=== PATIENT | female | born 1960 | race American Indian/Alaskan Native ===

== ENCOUNTER 2020-10-13 20:36 | Emergency (ER) | payer SELFPAY ==
[2020-10-13] MEDS ORDERED: ALUM-MAG HYDROXIDE-SIMETHICONE 200-200-20MG/5ML ORAL LIQD 30 ML PO ONE (23:28)
[2020-10-13] MEDS ORDERED: methylPREDNISolone Sod Succinate 125 MG/2 ML INJ IV ONE (23:28)
[2020-10-13] MEDS ORDERED: FAMOTIDINE 20 MG TAB PO ONE (23:28)
[2020-10-13] MEDS ORDERED: LIDOCAINE VISCOUS 2% 15 ML ORAL LIQD PO ONE (23:28)
--- NOTE | 2020-10-13 23:57 | XRay Report ---
CHEST 1 VIEW INDICATION: chest tightness. COMPARISON: None FINDINGS: SUPPORT DEVICES: None. HEART: Within normal limits. LUNGS/PLEURA: No acute air space or interstitial disease. ADDITIONAL FINDINGS: None. IMPRESSION: 1. No acute findings. Signer Name: Pradip Huber MD Signed: 10/13/2020 11:52 PM Workstation Name: [id number]
[2020-10-14 00:42] LABS: Basophils % (Auto) 0.2 % (0.0-1.8); Eosinophils # (Auto) 0.1 K/mm3 (0.0-0.4); Eosinophils % (Auto) 1.5 % (0.0-4.3); Hematocrit 45.7 % (30.3-42.9); Hemoglobin 15.3 gm/dl (10.1-14.3); Lymphocytes # (Auto) 3.1 K/mm3 (1.2-5.4); Lymphocytes % (Auto) 39.6 % (13.4-35.0); Mean Corpuscular HGB Conc 34 % (30-34); Mean Corpuscular Volume 95 fl (79-97); Monocytes # (Auto) 0.6 K/mm3 (0.0-0.8); Monocytes % (Auto) 7.9 % (0.0-7.3); Platelet Count 277 K/mm3 (140-440); Red Cell Distribution Width 14.5 % (13.2-15.2)
[2020-10-14 00:47] LABS: Alanine Aminotransferase 16 units/L (7-56); Albumin 4.6 g/dL (3.9-5); BUN/Creatinine Ratio 7; Blood Urea Nitrogen 5 mg/dL (7-17); Calcium 9.8 mg/dL (8.4-10.2); Hemolysis Index 7
--- NOTE | 2020-10-14 02:15 | Emergency Department Report ---
ED Abdominal Pain HPI - General Chief Complaint: Abdominal Pain Stated Complaint: ACID REFLUX/CHEST TIGHTNESS Source: patient Mode of arrival: Ambulatory Limitations: No Limitations - History of Present Illness Initial Comments: Patient is a 60-year-old -[place] female with a history of anxiety and depression, hypothyroidism and GERD who presents to the ED with acute onset persistent frontal sinus pressure, headache, nasal congestion, intermittent nausea and vomiting and epigastric burning sensation for the last 24 hours, worse in the last 12 hours. Patient states that she has not been able to sleep or eat because of worsening epigastric discomfort and nausea. Patient states that the nasal congestion and drainage has worsened despite taking regular medications for allergies. Patient states that her symptoms got worse in the last 8 hours such that she started having panic attack characterized by shortness of breath and chest tightness. Patient states that she also ran out of her Synthroid for the last 1 year and has not taken the medication because she lost her medical insurance. Patient denies chest pain, shortness of breath, dizziness, syncope, diarrhea, dysuria, sore throat, neck pain, headache, change in vision or palpitations and back pain. MD Complaint: abdominal pain, other (Nausea and vomiting; medication refill for hypothyroidism) -: Sudden, hour(s) (24) Location: epigastric Radiation: chest Migration to: no migration Severity: moderate Severity scale (0 -10): 4 Quality: dull, burning Consistency: intermittent Improves With: nothing Worsens With: eating, vomiting Context: other (GERD complications) Associated Symptoms: denies other symptoms, nausea, vomiting, anorexia. denies: diarrhea, fever, chills, constipation, dysuria, hematemesis, hematochezia, melena, hematuria - Related Data Previous Rx's Medication Instructions Recorded Last Taken Type Cetirizine HCl [Zyrtec 10mg tab] 10 mg PO DAILY #30 tablet 10/14/20 Unknown Rx Famotidine [Pepcid] 20 mg PO BID #60 tablet 10/14/20 Unknown Rx Fluticasone [Flonase] 1 spray NS QDAY #1 bottle 10/14/20 Unknown Rx Levothyroxine [Synthroid] 100 mcg PO QAM #30 tablet 10/14/20 Unknown Rx Omeprazole 40 mg PO DAILY #30 capsule. 10/14/20 Unknown Rx Ondansetron [Zofran Odt] 4 mg PO Q6HR PRN #15 tab.rapdis 10/14/20 Unknown Rx hydrOXYzine PAMOATE [Vistaril] 50 mg PO Q8H PRN #30 capsule 10/14/20 Unknown Rx Allergies Allergy/AdvReac Type Severity Reaction Status Date / Time amoxicillin [From Augmentin] Allergy Vomiting Verified 10/13/20 23:52 clavulanic acid Allergy Vomiting Verified 10/13/20 23:52 [From Augmentin] erythromycin base Allergy Hives Verified 10/13/20 23:52 ED Review of Systems ROS: Stated complaint: ACID REFLUX/CHEST TIGHTNESS Other details as noted in HPI Constitutional: denies: chills, fever Eyes: denies: eye pain, eye discharge, vision change ENT: congestion, other (Frontal and maxillary sinus pressure and congestion). denies: ear pain, throat pain Respiratory: cough, shortness of breath. denies: wheezing Cardiovascular: denies: chest pain, palpitations Endocrine: no symptoms reported Gastrointestinal: abdominal pain (Burning epigastric pain), nausea, vomiting. denies: diarrhea Genitourinary: denies: urgency, dysuria, discharge Musculoskeletal: back pain (Low back pain, chronic). denies: joint swelling, arthralgia Skin: denies: rash, lesions Neurological: headache. denies: weakness, paresthesias Psychiatric: anxiety, depression. denies: auditory hallucinations Hematological/Lymphatic: denies: easy bleeding, easy bruising ED Past Medical Hx - Past Medical History Previous Medical History?: Yes Hx GERD: Yes Additional medical history: Chronic hypothyroidism - Surgical History Additional Surgical History: THYROIDECTOMY - Social History Smoking Status: Current Every Day Smoker Substance Use Type: None - Medications Home Medications: Home Medications Medication Instructions Recorded Confirmed Last Taken Type Cetirizine HCl [Zyrtec 10mg tab] 10 mg PO DAILY #30 tablet 10/14/20 Unknown Rx Famotidine [Pepcid] 20 mg PO BID #60 tablet 10/14/20 Unknown Rx Fluticasone [Flonase] 1 spray NS QDAY #1 bottle 10/14/20 Unknown Rx Levothyroxine [Synthroid] 100 mcg PO QAM #30 tablet 10/14/20 Unknown Rx Omeprazole 40 mg PO DAILY #30 10/14/20 Unknown Rx Ondansetron [Zofran Odt] 4 mg PO Q6HR PRN #15 tab.rapdis 10/14/20 Unknown Rx hydrOXYzine PAMOATE [Vistaril] 50 mg PO Q8H PRN #30 capsule 10/14/20 Unknown Rx ED Physical Exam - General Limitations: No Limitations General appearance: alert, in no apparent distress - Head Head exam: Present: atraumatic, normocephalic, normal inspection - Eye Eye exam: Present: normal appearance, PERRL, EOMI Pupils: Present: normal accommodation - ENT ENT exam: Present: normal orophraynx, mucous membranes moist, TM's normal bilaterally, normal external ear exam, other (Grossly congested nasal passages; palpable frontal and maxillary sinus tenderness) - Neck Neck exam: Present: normal inspection, full ROM. Absent: tenderness - Respiratory Respiratory exam: Present: normal lung sounds bilaterally. Absent: respiratory distress, wheezes, rales, stridor, chest wall tenderness, accessory muscle use, decreased breath sounds - Cardiovascular Cardiovascular Exam: Present: normal rhythm, bradycardia, normal heart sounds. Absent: systolic murmur, diastolic murmur, rubs, gallop - GI/Abdominal GI/Abdominal exam: Present: soft, normal bowel sounds. Absent: tenderness, guarding, rebound, hyperactive bowel sounds, hypoactive bowel sounds, organomegaly - Extremities Exam Extremities exam: Present: normal inspection, full ROM, normal capillary refill - Back Exam Back exam: Present: normal inspection, full ROM. Absent: tenderness, CVA t enderness (R), CVA tenderness (L), muscle spasm, paraspinal tenderness, vertebral tenderness - Neurological Exam Neurological exam: Present: alert, oriented X3, CN II-XII intact, normal gait, reflexes normal - Psychiatric Psychiatric exam: Present: normal affect, depressed, anxious. Absent: homicidal ideation, suicidal ideation - Skin Skin exam: Present: warm, dry, intact, normal color. Absent: rash ED Course Vital Signs 10/13/20 20:51 Temperature 98.6 F Pulse Rate 54 L Respiratory 18 Rate Blood Pressure 206/85 O2 Sat by Pulse 97 Oximetry ED Medical Decision Making - Lab Data Result diagrams: 10/13/20 23:44 10/13/20 23:44 - EKG Data EKG shows normal: sinus rhythm Rate: normal - EKG Data Interpretation: normal EKG 10/14/20 02:26 EKG shows normal sinus rhythm with a ventricular rate of [address] or T wave abnormalities - Radiology Data Radiology results: report reviewed, image reviewed [facility] [address] [place] [address] XRay Report Signed Patient: JOEL SCHWAB MR#: [id number] 25 : 1960 Acct:[id number] Age/Sex: 60 / F ADM Date: 10/13/20 Loc: ED Attending Dr: Ordering Physician: PUNEET HARVEY Date of Service: 10/13/20 Procedure(s): XR chest 1V ap Accession Number(s): [id number] cc: PUNEET HARVEY Fluoro Time In Minutes: CHEST 1 VIEW INDICATION: chest tightness. COMPARISON: None FINDINGS: SUPPORT DEVICES: None. HEART: Within normal limits. LUNGS/PLEURA: No acute air space or interstitial disease. ADDITIONAL FINDINGS: None. IMPRESSION: 1. No acute findings. Signer Name: Pradip Huber MD Signed: 10/13/2020 11:52 PM Workstation Name: [id number] Transcribed By: ARECNIO Dictated By: Pradip Huber MD Electronically Authenticated By: Pradip Huber MD Signed Date/Time: 10/13/202351 DD/ 51 TD/TT: Print Cancel - Medical Decision Making This is a 60-year-old -[place]ib[place] female with a history of anxiety and depression, hypothyroidism and GERD who presents to the ED with acute onset persistent frontal sinus pressure, headache, nasal congestion, intermittent nausea and vomiting and epigastric burning sensation for the last 24 hours, worse in the last 12 hours. Patient states that she has not been able to sleep or eat because of worsening epigastric discomfort and nausea. Patient states that the nasal congestion and drainage has worsened despite taking regular medications for allergies. Patient states that her symptoms got worse in the last 8 hours such that she started having panic attack characterized by shortness of breath and chest tightness. Patient states that she also ran out of her Synthroid for the last 1 year and has not taken the medication because she lost her medical insurance. In the ED, patient is alert and oriented x3 and is not in any distress. Patient however appears anxious during the physical exam. Chest x-ray shows no acute cardiopulmonary abnormalities or pneumonitis. EKG shows normal sinus rhythm with a ventricular rate of [address] or T wave abnormalities lab test results were reviewed and are all nonactionable except for TSH of 34.07, consistent with the patient's untreated chronic hypothyroidism. Patient was treated in the ED for nausea and vomiting and also treated with antacids for GERD. On reevaluation, patient's nausea and vomiting resolved in the ED. Patient was therefore discharged home on medications and advised to follow-up with her primary care physician in 5 to 7 days for reevaluation or return to the ED immediately if symptoms get worse. - Differential Diagnosis GERD; sinusitis; gastroenteritis; pneumonia; ACS; URI; dehydration Critical care attestation.: If time is entered above; I have spent that time in minutes in the direct care of this critically ill patient, excluding procedure time. ED Disposition Clinical Impression: Nausea and vomiting in adult patient, Anxiety as acute reaction to exceptional stress, Chronic allergic rhinitis due to pollen GERD (gastroesophageal reflux disease) Qualifiers: Esophagitis presence: esophagitis presence not specified Qualified Code(s): K21.9 - Gastro-esophageal reflux disease without esophagitis Hypothyroidism Qualifiers: Hypothyroidism type: unspecified Qualified Code(s): E03.9 - Hypothyroidism, unspecified Disposition: DC-01 TO HOME OR SELFCARE Is pt being admited?: No Does the pt Need Aspirin: No Condition: Stable Instructions: Abdominal Pain (ED), Nausea and Vomiting, Adult, [id number], Heartburn, [id number], Gastroesophageal Reflux Disease, Adult, [id number] Additional Instructions: All lab test results were reviewed and are all nonactionable. EKG shows normal sinus rhythm with ventricular rate of [address] or T wave abnormalities. Chest x-ray shows no acute cardiopulmonary abnormalities or pneumonitis. Therefore your symptoms are due to your chronic allergic rhinitis characterized by complications of GERD and anxiety. Therefore take medications with food, d rink plenty fluids and follow-up with your primary care physician in 5 to 7 days for reevaluation. Return to the ED immediately if symptoms get worse. Prescriptions: Fluticasone [Flonase] 1 spray NS QDAY #1 bottle Omeprazole 40 mg PO DAILY #30 capsule. Famotidine [Pepcid] 20 mg PO BID #60 tablet Levothyroxine [Synthroid] 100 mcg PO QAM #30 tablet hydrOXYzine PAMOATE [Vistaril] 50 mg PO Q8H PRN #30 capsule PRN Reason: Anxiety Ondansetron [Zofran Odt] 4 mg PO Q6HR PRN #15 tab.rapdis PRN Reason: Nausea Cetirizine HCl [Zyrtec 10mg tab] 10 mg PO DAILY #30 tablet Referrals: [facility] [Provider Group] - 7-[address] [facility] [place] [Outside] - 3-5 Days Time of Disposition: 02:18 Print Language: [place]
[2020-10-14 02:54] VITALS: BP 148/84
--- NOTE | 2020-10-15 13:43 | Electrocardiograph Report ---
[facility] Test Date: 2020-10-14 Test Time: 01:11:26 Pat Name: JOEL SCHWAB Department: Room: Gender: F [employer] Hand: ALBERTA : 1960 Requested By: JESUS FOX Order Number: [id number] Reading MD: Neeraj Redd Measurements Intervals [place] Rate: 88 P: 70 PA: 208 QRS: 12 QRSD: 96 T: 29 QT: 404 QTc: 490 Interpretive Statements Sinus rhythm Borderline prolonged PA interval No previous ECG available for comparison Electronically Signed On 10-15-2020 13:43:30 EDT by Neeraj Redd
== END 2020-10-14 02:55 | disposition home or self-care (01) ==
LOC: ED 20:36
DX: F41.1 Generalized anxiety disorder (principal); F43.0 Acute stress reaction; J30.1 Allergic rhinitis due to pollen; K21.9 Gastro-esophageal reflux disease without esophagitis; E03.9 Hypothyroidism, unspecified; R11.2 Nausea with vomiting, unspecified; F17.200 Nicotine dependence, unspecified, uncomplicated; F32.9 Major depressive disorder, single episode, unspecified; Z79.899 Other long term (current) drug therapy; Z88.8 Allergy status to other drugs, medicaments and biological substances; Z98.890 Other specified postprocedural states
CPT/HCPCS: 36415; 71045; 80053; 84436; 84443; 84484; 85025; 96374; 99284; J2930; 93005

== ENCOUNTER 2021-11-18 10:22 | Outpatient (CLI) | payer OTHER ==
--- NOTE | 2021-11-18 11:32 | XRay Report ---
CERVICAL SPINE 3 VIEWS INDICATION: BACK PAIN, LEFT SIDE PROBLEMS. COMPARISON: None. IMPRESSION: Normal alignment. 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 The remaining levels are within normal limits. No acute osseous or soft tissue abnormality. LEFT SHOULDER 3 VIEWS INDICATION: BACK PAIN, LEFT SIDE PROBLEMS. COMPARISON: None. IMPRESSION: No acute osseous or soft tissue abnormality. No significant DJD. There is normal alig nment at the glenohumeral joint with no findings to suggest a chronic left rotator cuff tear on x-ray . If further evaluation is needed, MRI left shoulder is recommended. Signer Name: Vicente Gómez Jr, MD Signed: 11/18/2021 11:28 AM Workstation Name: [id number]
== END 2021-11-18 10:23 | disposition home or self-care (01) ==
LOC: XRAY 10:22
PROVIDERS: ATTEND Internal Medicine
DX: M47.812 Spondylosis without myelopathy or radiculopathy, cervical region (principal); M25.512 Pain in left shoulder
CPT/HCPCS: 72040

== ENCOUNTER 2022-01-29 14:27 | Emergency (ER) | payer SELFPAY ==
--- NOTE | 2022-01-29 15:00 | Emergency Department Report ---
Minor Respiratory - HPI Stated Complaint: THYROID, BLOOD PRESSURE, DRAINAGE Time Seen by Provider: 01/29/22 14:58 Duration: 3 Days Pain Location: Chest Severity: mild Minor Respiratory: Yes Rhinorrhea, Yes Sore Throat, Yes Able to Tolerate Fluids, Yes Cough, No Ear Pain, No Sick Contacts, No Hemoptysis, No Chest Pain, No Shortness of Breath, No Fever Other History: 61 yo comes to ER with allegies, runny nose, sore thoat. Cough at night when lays down - because of post nasal drip. No cough during day. No sob. No cp. She is requesting refill of synthroid. Pt homeless and has no pcp ED Review of Systems ROS: Stated complaint: THYROID, BLOOD PRESSURE, DRAINAGE Other details as noted in HPI Comment: All other systems reviewed and negative ED Past Medical Hx - Past Medical History Previous Medical History?: Yes Hx GERD: Yes Additional medical history: Chronic hypothyroidism - Surgical History Past Surgical History?: Yes Additional Surgical History: THYROIDECTOMY - Family History Family history: no significant - Social History Smoking Status: Current Every Day Smoker Substance Use Type: None - Medications Home Medications: Home Medications Medication Instructions Recorded Confirmed Last Taken Type Cetirizine HCl [ZyrTEC] 10 mg PO DAILY #30 capsule 01/29/22 Unknown Rx Fluticasone [Flonase] 1 spray NS QDAY #1 bottle 01/29/22 Unknown Rx Ibuprofen [Motrin] 800 mg PO Q8HR PRN #30 tablet 01/29/22 Unknown Rx Levothyroxine [Synthroid] 100 mcg PO QAM #30 tablet 01/29/22 Unknown Rx Sulfamethoxazole/Trimethoprim 1 each PO BID #10 tablet 01/29/22 Unknown Rx [Bactrim DS TAB] predniSONE [Deltasone] 20 mg PO DAILY #5 tablet 01/29/22 Unknown Rx Minor Respiratory Exam - Exam General: Vital signs noted. No distress. Alert and acting appropriately. HEENT: Yes Pharyngeal Erythema, Yes Moist Mucous Membranes, Yes Frontal Tenderness, Yes Maxillary Tenderness, No Pharyngeal Exudates, No Rhinorrhea, No Conjuctival Injection Ear: Neither TM Bulge, Neither TM Erythema, Neither EAC Pain, Neither EAC Discharge Neck: Yes Supple, No Adenopathy Lungs: Yes Good Air Exchange, No Wheezes, No Ronchi, No Stridor, No Cough, No Labored Respirations, No Retractions, No Use of Accessory Muscles, No Other Abnormal Lung Sounds Heart: Yes Regular, No Murmur Abdomen: Yes Normal Bowel Sounds, No Tenderness, No Peritoneal Signs Skin: No Rash, No Edema Neurologic: Alert and oriented, no deficits. Musculoskeletal: Unremarkable. ED Medical Decision Making - Medical Decision Making Vital Signs 01/29/22 14:56 Temperature 98.7 F Pulse Rate 74 Respiratory 12 Rate Blood Pressure 170/75 [Left] O2 Sat by Pulse 100 Oximetry vss no fever no cp no sob taking po ambulatory nad sinus tenderness and red throat. decadron and motrin in ER for comfort pt being dc home with dc plan of care including diet, meds, activity and follow up. Pt verbalizes understanding of plan of care. - Differential Diagnosis URI- sinusitis/allergic rhinitis Critical care attestation.: If time is entered above; I have spent that time in minutes in the direct care of this critically ill patient, excluding procedure time. ED Disposition Clinical Impression: Homeless, History of hypothyroidism, Non-adherence to medical treatment Sinusitis Qualifiers: Sinusitis location: unspecified location Chronicity: acute Disposition: 01 HOME / SELF CARE / HOMELESS Is pt being admited?: No Does the pt Need Aspirin: No Condition: Stable Instructions: Sinusitis, Adult Additional Instructions: MEDS ORDERED TODAY FOLLOW UP WITH PCP REFERRAL BELOW DIET AND ACTIVITY TOLERATED STAY WELL HYDRATED WITH WATER Prescriptions: Sulfamethoxazole/Trimethoprim [Bactrim DS TAB] 1 each PO BID #10 tablet predniSONE [Deltasone] 20 mg PO DAILY #5 tablet Fluticasone [Flonase] 1 spray NS QDAY #1 bottle Ibuprofen [Motrin] 800 mg PO Q8HR PRN #30 tablet PRN Reason: Pain, Moderate (4-6) Levothyroxine [Synthroid] 100 mcg PO QAM #30 tablet Cetirizine HCl [ZyrTEC] 10 mg PO DAILY #30 capsule Referrals: TACOS GANDARA MD [Staff Physician] - 3-5 Days Time of Disposition: 15:26
[2022-01-29 15:05] VITALS: BP 170/75
[2022-01-29] MEDS ORDERED: dexAMETHasone 4 MG/ML VIAL IV ONE (15:24)
[2022-01-29] MEDS ORDERED: IBUPROFEN 800 MG TAB PO ONE (15:24)
[2022-01-29] MEDS ORDERED: dexAMETHasone 4 MG/ML VIAL IM ONE (15:44)
== END 2022-01-29 16:24 | disposition home or self-care (01) ==
LOC: ED 14:27
DX: J32.9 Chronic sinusitis, unspecified (principal); Z59.00 Homelessness unspecified; E03.9 Hypothyroidism, unspecified; F17.200 Nicotine dependence, unspecified, uncomplicated; K21.9 Gastro-esophageal reflux disease without esophagitis; Z88.0 Allergy status to penicillin; Z88.1 Allergy status to other antibiotic agents; Z91.19 Patient's noncompliance with other medical treatment and regimen; Z79.899 Other long term (current) drug therapy
CPT/HCPCS: 96372; 99282; J1100; 96374

== ENCOUNTER 2022-02-17 22:44 | Emergency (ER) | payer SELFPAY ==
[2022-02-18 04:28] VITALS: BP 147/67
--- NOTE | 2022-02-18 05:20 | Emergency Department Report ---
ED General Adult HPI - General Chief complaint: High BP Stated complaint: BLOOD PRESSURE/EAR PAIN/HEAHACHE Source: patient Mode of arrival: Ambulatory Limitations: No Limitations - History of Present Illness Initial comments: Patient is a 61-year-old -[place] female with a history of anxiety, depression, GERD and hypertension who presents to the ED with complaint of acute onset persistent elevated blood pressure for the last 1 week. Patient states that she also ran out of her medications prior to arrival in the ED. Patient denies chest pain, shortness of breath, dizziness, syncope, abdominal pain, nausea and vomiting, diarrhea, headache, diaphoresis, neck pain, back pain, dysuria, urinary frequency and urgency, fever and chills and cough. MD Complaint: Uncontrolled hypertension; currently medication -: Gradual, days(s) (2) Location: head Radiation: non-radiation Severity scale (0 -10): 3 Quality: dull Consistency: intermittent Improves with: none Worsens with: none Associated Symptoms: denies other symptoms, malaise. denies: confusion, chest pain, cough, diaphoresis, fever/chills, headaches, loss of appetite, nausea/vomiting, rash, seizure, shortness of breath, syncope, weakness Treatments Prior to Arrival: none - Related Data Previous Rx's Medication Instructions Recorded Last Taken Type Cetirizine HCl [ZyrTEC] 10 mg PO DAILY #30 capsule 01/29/22 Unknown Rx Fluticasone [Flonase] 1 spray NS QDAY #1 bottle 01/29/22 Unknown Rx Ibuprofen [Motrin] 800 mg PO Q8HR PRN #30 tablet 01/29/22 Unknown Rx Levothyroxine [Synthroid] 100 mcg PO QAM #30 tablet 01/29/22 Unknown Rx Sulfamethoxazole/Trimethoprim 1 each PO BID #10 tablet 01/29/22 Unknown Rx [Bactrim DS TAB] predniSONE [Deltasone] 20 mg PO DAILY #5 tablet 01/29/22 Unknown Rx Lisinopril/Hydrochlorothiazide 1 each PO DAILY #30 tab 02/18/22 Unknown Rx [Zestoretic 20-12.5 mg] hydrOXYzine PAMOATE [Vistaril] 50 mg PO Q8HR PRN #30 capsule 02/18/22 Unknown Rx Allergies Allergy/AdvReac Type Severity Reaction Status Date / Time amoxicillin [From Augmentin] Allergy Vomiting Verified 04/17/21 23:52 clavulanic acid Allergy Vomiting Verified 10/13/20 23:52 [From Augmentin] erythromycin base Allergy Hives Verified 10/13/20 23:52 ED Review of Systems ROS: Stated complaint: BLOOD PRESSURE/EAR PAIN/HEAHACHE Other details as noted in HPI Constitutional: other (elevated blood pressure). denies: chills, fever Eyes: denies: eye pain, eye discharge, vision change ENT: denies: ear pain, throat pain Respiratory: denies: cough, shortness of breath, wheezing Cardiovascular: denies: chest pain, palpitations Endocrine: no symptoms reported Gastrointestinal: denies: abdominal pain, nausea, vomiting, diarrhea Genitourinary: denies: urgency, dysuria, discharge Musculoskeletal: denies: back pain, joint swelling, arthralgia Skin: denies: rash, lesions Neurological: denies: headache, weakness, paresthesias Psychiatric: denies: anxiety, depression Hematological/Lymphatic: denies: easy bleeding, easy bruising ED Past Medical Hx - Past Medical History Hx Hypertension: Yes Hx GERD: Yes Additional medical history: Chronic hypothyroidism - Surgical History Additional Surgical History: THYROIDECTOMY - Social History Smoking Status: Current Every Day Smoker Substance Use Type: None - Medications Home Medications: Home Medications Medication Instructions Recorded Confirmed Last Taken Type Cetirizine HCl [ZyrTEC] 10 mg PO DAILY #30 capsule 01/29/22 Unknown Rx Fluticasone [Flonase] 1 spray NS QDAY #1 bottle 01/29/22 Unknown Rx Ibuprofen [Motrin] 800 mg PO Q8HR PRN #30 tablet 01/29/22 Unknown Rx Levothyroxine [Synthroid] 100 mcg PO QAM #30 tablet 01/29/22 Unknown Rx Sulfamethoxazole/Trimethoprim 1 each PO BID #10 tablet 01/29/22 Unknown Rx [Bactrim DS TAB] predniSONE [Deltasone] 20 mg PO DAILY #5 tablet 01/29/22 Unknown Rx Lisinopril/Hydrochlorothiazide 1 each PO DAILY #30 tab 02/18/22 Unknown Rx [Zestoretic 20-12.5 mg] hydrOXYzine PAMOATE [Vistaril] 50 mg PO Q8HR PRN #30 capsule 02/18/22 Unknown Rx ED Physical Exam - General Limitations: No Limitations General appearance: alert, in no apparent distress - Head Head exam: Present: atraumatic, normocephalic, normal inspection - Eye Eye exam: Present: normal appearance, PERRL, EOMI Pupils: Present: normal accommodation - ENT ENT exam: Present: normal exam, normal orophraynx, mucous membranes moist, TM's normal bilaterally, normal external ear exam - Neck Neck exam: Present: normal inspection, full ROM. Absent: tenderness - Respiratory Respiratory exam: Present: normal lung sounds bilaterally. Absent: respiratory distress, wheezes, rales, rhonchi, stridor, chest wall tenderness, accessory muscle use, decreased breath sounds, prolonged expiratory - Cardiovascular Cardiovascular Exam: Present: normal rhythm, tachycardia, normal heart sounds. Absent: systolic murmur, diastolic murmur, rubs, gallop - GI/Abdominal GI/Abdominal exam: Present: soft, normal bowel sounds. Absent: tenderness, guarding, rebound, rigid, hyperactive bowel sounds, hypoactive bowel sounds, bruit - Extremities Exam Extremities exam: Present: normal inspection, full ROM, normal capillary refill. Absent: tenderness, pedal edema, joint swelling, calf tenderness - Back Exam Back exam: Present: normal inspection, full ROM. Absent: tenderness, CVA tenderness (R), CVA tenderness (L), muscle spasm, paraspinal tenderness, vertebral tenderness - Neurological Exam Neurological exam: Present: alert, oriented X3, CN II-XII intact, normal gait, reflexes normal - Psychiatric Psychiatric exam: Present: normal affect, normal mood - Skin Skin exam: Present: warm, dry, intact, normal color. Absent: rash ED Course Vital Signs 02/17/22 02/18/22 23:14 04:27 Temperature 98.3 F Pulse Rate 105 H 85 Respiratory 18 14 Rate Blood Pressure 183/92 Blood Pressure 147/67 [Right] O2 Sat by Pulse 99 100 Oximetry ED Medical Decision Making - Medical Decision Making This is a 61-year-old -[place] female with a history of anxiety, depression, GERD and hypertension who presents to the ED with complaint of acute onset persistent elevated blood pressure for the last 1 week. Patient states that she also ran out of her medications prior to arrival in the ED. in the ED, patient is alert and oriented x3 and is not in any distress. Patient is hemodynamically stable. Patient was discharged home with a refill of her blood pressure medications and advised to follow-up with her primary care physician in 7 to 10 days for reevaluation. Patient was advised to return to the ED immediately if symptoms get worse. - Differential Diagnosis Anxiety; hypertension; GERD; Critical care attestation.: If time is entered above; I have spent that time in minutes in the direct care of this critically ill patient, excluding procedure time. ED Disposition Clinical Impression: Uncontrolled stage 2 hypertension, Anxiety as acute reaction to exceptional stress Disposition: HOME / SELF CARE / HOMELESS Is pt being admited?: No Does the pt Need Aspirin: No Condition: Stable Instructions: Hypertension (ED), Generalized Anxiety Disorder, Adult, Hypertension, Adult, [id number] Additional Instructions: Take medication with food, drink plenty of fluids, follow-up with your primary care physician in 7 to 10 days for reevaluation. Return to the ED immediately if symptoms get worse. Prescriptions: hydrOXYzine PAMOATE [Vistaril] 50 mg PO Q8HR PRN #30 capsule PRN Reason: Anxiety Lisinopril/Hydrochlorothiazide [Zestoretic 20-12.5 mg] 1 each PO DAILY #30 tab Referrals: [facility] [Provider Group] - 3-5 Days TACOS GANDARA MD [Staff Physician] - 3-5 Days Time of Disposition: 05:21 Print Language: MACANESE
== END 2022-02-18 06:35 | disposition home or self-care (01) ==
LOC: ED 22:44
DX: I10 Essential (primary) hypertension (principal); F41.9 Anxiety disorder, unspecified
CPT/HCPCS: 99282

== ENCOUNTER 2022-03-05 04:56 | Emergency (ER) | payer SELFPAY ==
[2022-03-05 05:10] VITALS: BP 164/79
--- NOTE | 2022-03-05 08:48 | Emergency Department Report ---
ED General Adult HPI - General Chief complaint: High BP Stated complaint: EAR PAIN/BLOOD PRESSURE ELEVATED Time Seen by Provider: 03/05/22 07:27 Source: patient Mode of arrival: Ambulatory Limitations: No Limitations - History of Present Illness Initial comments: 61-year-old black female with a past medical history of hypertension and GERD presents to the emergency department for evaluation of elevated blood pressure. She states that she took her blood pressure late last night and the top number was 180 and it felt like she could feel her heart beating inside her ear, so she decided to come to the emergency department for further evaluation. She states that she has been on lisinopril 10 mg daily for her blood pressure, and her doctor recently changed her dose to 20 mg of lisinopril along with HCTZ 12.5 mg daily, but she decided not to take the medication because she did not think that her blood pressure was high enough for her to have an increased dose. She states that she has not taken any medication in a couple of weeks but when her blood pressure was high last night she took her first dose. She also complains of reflux type symptoms stating that she recently ran out of her reflux medication. She also complains of headache, nasal congestion, cough, and postnasal drip. She denies chest pain, shortness of breath, nausea, vomiting, dizziness, and diaphoresis. MD Complaint: Elevated blood pressure, congestion, reflux -: Gradual Location: head Radiation: non-radiation Severity scale (0 -10): 4 Quality: aching Consistency: constant Associated Symptoms: cough, headaches. denies: confusion, chest pain, diaphoresis, fever/chills, loss of appetite, malaise, nausea/vomiting, rash, seizure, shortness of breath, syncope, weakness Treatments Prior to Arrival: none - Related Data Previous Rx's Medication Instructions Recorded Last Taken Type Cetirizine HCl [ZyrTEC] 10 mg PO DAILY #30 capsule 01/29/22 Unknown Rx Fluticasone [Flonase] 1 spray NS QDAY #1 bottle 01/29/22 Unknown Rx Ibuprofen [Motrin] 800 mg PO Q8HR PRN #30 tablet 01/29/22 Unknown Rx Levothyroxine [Synthroid] 100 mcg PO QAM #30 tablet 01/29/22 Unknown Rx Sulfamethoxazole/Trimethoprim 1 each PO BID #10 tablet 01/29/22 Unknown Rx [Bactrim DS TAB] predniSONE [Deltasone] 20 mg PO DAILY #5 tablet 01/29/22 Unknown Rx Lisinopril/Hydrochlorothiazide 1 each PO DAILY #30 tab 02/18/22 Unknown Rx [Zestoretic 20-12.5 mg] hydrOXYzine PAMOATE [Vistaril] 50 mg PO Q8HR PRN #30 capsule 02/18/22 Unknown Rx Levocetirizine Dihydrochloride 5 mg PO QPM #15 tab 03/05/22 Unknown Rx [Xyzal] Pantoprazole [Protonix] 40 mg PO QDAY #30 tablet 03/05/22 Unknown Rx methylPREDNISolone [Medrol 4MG 4 mg PO DAILY #1 pack 03/05/22 Unknown Rx DOSEPAK (21 tabs)] Allergies Allergy/AdvReac Type Severity Reaction Status Date / Time amoxicillin [From Augmentin] Allergy Vomiting Verified 10/13/20 23:52 clavulanic acid Allergy Vomiting Verified 10/13/20 23:52 [From Augmentin] erythromycin base Allergy Hives Verified 10/13/20 23:52 ED Review of Systems ROS: Stated complaint: EAR PAIN/BLOOD PRESSURE ELEVATED Other details as noted in HPI Comment: All other systems reviewed and negative Constitutional: denies: chills, fever Eyes: eye pain. denies: eye discharge, vision change ENT: ear pain, congestion Respiratory: cough. denies: shortness of breath, SOB with exertion, SOB at rest, stridor, wheezing Cardiovascular: denies: chest pain, palpitations Gastrointestinal: denies: abdominal pain, nausea, vomiting Genitourinary: denies: urgency, dysuria, frequency, hematuria Musculoskeletal: denies: back pain Skin: denies: rash, lesions Neurological: headache. denies: weakness, numbness, paresthesias, confusion, abnormal gait ED Past Medical Hx - Past Medical History Hx Hypertension: Yes Hx GERD: Yes Additional medical history: Chronic hypothyroidism - Surgical History Additional Surgical History: THYROIDECTOMY - Social History Smoking Status: Current Every Day Smoker Substance Use Type: None - Medications Home Medications: Home Medications Medication Instructions Recorded Confirmed Last Taken Type Cetirizine HCl [ZyrTEC] 10 mg PO DAILY #30 capsule 01/29/22 Unknown Rx Fluticasone [Flonase] 1 spray NS QDAY #1 bottle 01/29/22 Unknown Rx Ibuprofen [Motrin] 800 mg PO Q8HR PRN #30 tablet 01/29/22 Unknown Rx Levothyroxine [Synthroid] 100 mcg PO QAM #30 tablet 01/29/22 Unknown Rx Sulfamethoxazole/Trimethoprim 1 each PO BID #10 tablet 01/29/22 Unknown Rx [Bactrim DS TAB] predniSONE [Deltasone] 20 mg PO DAILY #5 tablet 01/29/22 Unknown Rx Lisinopril/Hydrochlorothiazide 1 each PO DAILY #30 tab 02/18/22 Unknown Rx [Zestoretic 20-12.5 mg] hydrOXYzine PAMOATE [Vistaril] 50 mg PO Q8HR PRN #30 capsule 02/18/22 Unknown Rx Levocetirizine Dihydrochloride 5 mg PO QPM #15 tab 03/05/22 Unknown Rx [Xyzal] Pantoprazole [Protonix] 40 mg PO QDAY #30 tablet 03/05/22 Unknown Rx methylPREDNISolone [Medrol 4MG 4 mg PO DAILY #1 pack 03/05/22 Unknown Rx DOSEPAK (21 tabs)] ED Physical Exam - General Limitations: No Limitations General appearance: alert, in no apparent distress - Head Head exam: Present: atraumatic, normocephalic, normal inspection - Eye Eye exam: Present: normal appearance. Absent: conjunctival injection, periorbital swelling, periorbital tenderness - ENT ENT exam: Present: TM's normal bilaterally. Absent: normal exam (Bilateral nasal mucosal edema along with turbinate swelling), normal orophraynx (Erythema noted to posterior oropharynx) - Expanded ENT Exam Expanded Ear exam: Present: normal external inspection Throat exam: Negative: tonsillar erythema, tonsillomegaly, tonsillar exudate, R peritonsillar mass, L peritonsillar mass - Neck Neck exam: Present: normal inspection. Absent: tenderness, lymphadenopathy - Respiratory Respiratory exam: Present: normal lung sounds bilaterally. Absent: respiratory distress, wheezes, rales, rhonchi, stridor, chest wall tenderness - Cardiovascular Cardiovascular Exam: Present: regular rate, normal heart sounds - GI/Abdominal GI/Abdominal exam: Present: soft, normal bowel sounds. Absent: distended, tenderness, guarding, rebound, rigid - Extremities Exam Extremities exam: Present: normal inspection, full ROM, normal capillary refill. Absent: tenderness, pedal edema, joint swelling - Back Exam Back exam: Present: normal inspection. Absent: CVA tenderness (R), CVA tenderness (L) - Neurological Exam Neurological exam: Present: alert, oriented X3, CN II-XII intact, normal gait - Psychiatric Psychiatric exam: Present: normal affect, normal mood - Skin Skin exam: Present: warm, dry, intact, normal color ED Course Vital Signs 03/05/22 05:01 Temperature 98.6 F Pulse Rate 95 H Respiratory 18 Rate Blood Pressure 164/79 [Right] O2 Sat by Pulse 100 Oximetry ED Medical Decision Making - Medical Decision Making 61-year-old black female with a past medical history of hypertension and GERD presents to the emergency department for evaluation of elevated blood pressure. She states that she took her blood pressure late last night and the top number was 180 and it felt like she could feel her heart beating inside her ear, so she decided to come to the emergency department for further evaluation. She states that she has been on lisinopril 10 mg daily for her blood pressure, and her doctor recently changed her dose to 20 mg of lisinopril along with HCTZ 12.5 mg daily, but she decided not to take the medication because she did not think that her blood pressure was high enough for her to have an increased dose. She states that she has not taken any medication in a couple of weeks but when her blood pressure was high last night she took her first dose. She also complains of reflux type symptoms stating that she recently ran out of her reflux medication. She also complains of headache, nasal congestion, cough, and postnasal drip. She denies chest pain, shortness of breath, nausea, vomiting, dizziness, and diaphoresis. Exam consistent with sinusitis. Patient will be treated with Medrol Dosepak and started on Xyzal. Patient be given refill of Protonix to use as directed. She was encouraged to start and continue hypertension medication as discussed. She is advised to monitor and record blood pressure and follow-up with her primary care provider for further evaluation and management. She is advised to return to the emergency department as needed. She verbalizes understanding of and agreement with plan of care. Critical care attestation.: If time is entered above; I have spent that time in minutes in the direct care of this critically ill patient, excluding procedure time. ED Disposition Clinical Impression: Medication refill Sinusitis Qualifiers: Sinusitis location: frontal Chronicity: acute Recurrence: non-recurrent Qualified Code(s): J01.10 - Acute frontal sinusitis, unspecified Disposition: 01 HOME / SELF CARE / HOMELESS Is pt being admited?: No Does the pt Need Aspirin: No Condition: Stable Instructions: Food Choices for Gastroesophageal Reflux Disease, Adult, Sinusitis, Adult, [id number], Gastroesophageal Reflux Disease, Adult, [id number] Additional Instructions: Continue blood pressure medication at new doses as previously prescribed by your doctor as discussed. Take medications as prescribed in the emergency department. Monitor and record blood pressure at home. Follow-up with your primary care provider for further evaluation and management. Return to the emergency department as needed. Prescriptions: methylPREDNISolone [Medrol 4MG DOSEPAK (21 tabs)] 4 mg PO DAILY #1 pack Pantoprazole [Protonix] 40 mg PO QDAY #30 tablet Levocetirizine Dihydrochloride [Xyzal] 5 mg PO QPM #15 tab Referrals: TACOS GANDARA MD [Primary Care Provider] - 3-5 Days [facility] [Provider Group] - 3-5 Days Time of Disposition: 08:44
== END 2022-03-05 09:41 | disposition home or self-care (01) ==
LOC: ED 04:56
DX: J32.9 Chronic sinusitis, unspecified (principal); Z76.0 Encounter for issue of repeat prescription; I10 Essential (primary) hypertension; K21.9 Gastro-esophageal reflux disease without esophagitis; E03.9 Hypothyroidism, unspecified; F17.200 Nicotine dependence, unspecified, uncomplicated; Z88.1 Allergy status to other antibiotic agents; Z88.8 Allergy status to other drugs, medicaments and biological substances; Z79.899 Other long term (current) drug therapy
CPT/HCPCS: 99282

== ENCOUNTER 2022-03-25 18:22 | Emergency (ER) | payer SELFPAY ==
[2022-03-25] MEDS ORDERED: ACETAMINOPHEN 500 MG TAB PO ONE (23:47)
[2022-03-25] MEDS ORDERED: METOCLOPRAMIDE 10 MG TAB PO ONE (23:47)
[2022-03-25] MEDS ORDERED: predniSONE 20 MG TAB PO ONE (23:47)
[2022-03-25] MEDS ORDERED: diphenhydrAMINE 25 MG CAP PO ONE (23:47)
--- NOTE | 2022-03-26 00:14 | Emergency Department Report ---
ED General Adult HPI - General Chief complaint: Headache Stated complaint: CHEST PAIN,HEADACHE Time Seen by Provider: 03/25/22 23:47 Source: patient Mode of arrival: Ambulatory Limitations: No Limitations - History of Present Illness Initial comments: Patient 61-year-old female with history of migraine headaches hypothyroidism hypertension, and recurrent sinus headaches who presents for sinus pain and pressure x1 week. Patient states symptoms are exacerbated from a migraine. Migraine is frontal radiating to left eye this is usual location and intensity for migraine headaches for this patient. Patient denies fever. Patient does endorse postnasal drip that is yellow patient denies chest pain there is no shortness of breath no dizziness no lightheadedness no nausea no vomiting no diaphoresis. Chest pain noticed on triage assessment however patient denies chest pain. States symptoms are head congestion and sinus pressure. Severity scale (0 -10): 6 - Related Data Previous Rx's Medication Instructions Recorded Last Taken Type Cetirizine HCl [ZyrTEC] 10 mg PO DAILY #30 capsule 01/29/22 Unknown Rx Fluticasone [Flonase] 1 spray NS QDAY #1 bottle 01/29/22 Unknown Rx Ibuprofen [Motrin] 800 mg PO Q8HR PRN #30 tablet 01/29/22 Unknown Rx Levothyroxine [Synthroid] 100 mcg PO QAM #30 tablet 01/29/22 Unknown Rx Sulfamethoxazole/Trimethoprim 1 each PO BID #10 tablet 01/29/22 Unknown Rx [Bactrim DS TAB] predniSONE [Deltasone] 20 mg PO DAILY #5 tablet 01/29/22 Unknown Rx Lisinopril/Hydrochlorothiazide 1 each PO DAILY #30 tab 02/18/22 Unknown Rx [Zestoretic 20-12.5 mg] hydrOXYzine PAMOATE [Vistaril] 50 mg PO Q8HR PRN #30 capsule 02/18/22 Unknown Rx Levocetirizine Dihydrochloride 5 mg PO QPM #15 tab 03/05/22 Unknown Rx [Xyzal] Pantoprazole [Protonix] 40 mg PO QDAY #30 tablet 03/05/22 Unknown Rx methylPREDNISolone [Medrol 4MG 4 mg PO DAILY #1 pack 03/05/22 Unknown Rx DOSEPAK (21 tabs)] Clindamycin [Clindamycin CAP] 300 mg PO Q8H 7 Days #21 cap 03/26/22 Unknown Rx Fexofenadine HCl [Lucía Allergy] 180 mg PO DAILY #30 tab 03/26/22 Unknown Rx Fluticasone [Flonase] 1 spray NS QDAY #1 bottle 03/26/22 Unknown Rx Ibuprofen [Motrin 800 MG tab] 800 mg PO Q8HR PRN #30 tablet 03/26/22 Unknown Rx methylPREDNISolone [Medrol 4MG 4 mg PO DAILY #1 pack 03/26/22 Unknown Rx DOSEPAK (21 tabs)] Allergies Allergy/AdvReac Type Severity Reaction Status Date / Time amoxicillin [From Augmentin] Allergy Vomiting Verified 10/13/20 23:52 clavulanic acid Allergy Vomiting Verified 10/13/20 23:52 [From Augmentin] erythromycin base Allergy Hives Verified 10/13/20 23:52 ED Review of Systems ROS: Stated complaint: CHEST PAIN,HEADACHE Other details as noted in HPI Constitutional: malaise Eyes: eye pain (Sinus pressure radiating to left no decrease in vision). denies: eye discharge, vision change ENT: ear pain, throat pain, congestion Respiratory: denies: cough, shortness of breath, wheezing Cardiovascular: denies: chest pain, palpitations Endocrine: no symptoms reported Gastrointestinal: denies: abdominal pain, nausea, vomiting, diarrhea Genitourinary: denies: urgency, dysuria, discharge Musculoskeletal: denies: back pain, joint swelling, arthralgia Skin: as per HPI Neurological: headache. denies: weakness, paresthesias Psychiatric: denies: anxiety, depression Hematological/Lymphatic: denies: easy bleeding, easy bruising ED Past Medical Hx - Past Medical History Previous Medical History?: (Sinus pressure radiating to left) Hx Hypertension: Yes Hx GERD: Yes Additional medical history: Chronic hypothyroidism - Surgical History Additional Surgical History: THYROIDECTOMY - Social History Smoking Status: Current Every Day Smoker Substance Use Type: None - Medications Home Medications: Home Medications Medication Instructions Recorded Confirmed Last Taken Type Cetirizine HCl [ZyrTEC] 10 mg PO DAILY #30 capsule 01/29/22 Unknown Rx Fluticasone [Flonase] 1 spray NS QDAY #1 bottle 01/29/22 Unknown Rx Ibuprofen [Motrin] 800 mg PO Q8HR PRN #30 tablet 01/29/22 Unknown Rx Levothyroxine [Synthroid] 100 mcg PO QAM #30 tablet 01/29/22 Unknown Rx Sulfamethoxazole/Trimethoprim 1 each PO BID #10 tablet 01/29/22 Unknown Rx [Bactrim DS TAB] predniSONE [Deltasone] 20 mg PO DAILY #5 tablet 01/29/22 Unknown Rx Lisinopril/Hydrochlorothiazide 1 each PO DAILY #30 tab 02/18/22 Unknown Rx [Zestoretic 20-12.5 mg] hydrOXYzine PAMOATE [Vistaril] 50 mg PO Q8HR PRN #30 capsule 02/18/22 Unknown Rx Levocetirizine Dihydrochloride 5 mg PO QPM #15 tab 03/05/22 Unknown Rx [Xyzal] Pantoprazole [Protonix] 40 mg PO QDAY #30 tablet 03/05/22 Unknown Rx methylPREDNISolone [Medrol 4MG 4 mg PO DAILY #1 pack 03/05/22 Unknown Rx DOSEPAK (21 tabs)] Clindamycin [Clindamycin CAP] 300 mg PO Q8H 7 Days #21 cap 03/26/22 Unknown Rx Fexofenadine HCl [Lucía Allergy] 180 mg PO DAILY #30 tab 03/26/22 Unknown Rx Fluticasone [Flonase] 1 spray NS QDAY #1 bottle 03/26/22 Unknown Rx Ibuprofen [Motrin 800 MG tab] 800 mg PO Q8HR PRN #30 tablet 03/26/22 Unknown Rx methylPREDNISolone [Medrol 4MG 4 mg PO DAILY #1 pack 03/26/22 Unknown Rx DOSEPAK (21 tabs)] ED Physical Exam - General Limitations: No Limitations General appearance: alert, in no apparent distress - Head Head exam: Present: normocephalic, normal inspection - Eye Eye exam: Present: PERRL, EOMI. Absent: conjunctival injection, nystagmus Pupils: Present: normal accommodation - ENT ENT exam: Present: normal orophraynx, mucous membranes moist, TM's normal bi laterally, normal external ear exam, other (Bilateral turbinate bogginess erythema yellow clear rhinorrhea maxillary sinus pain to deep palpation no erythema) - Neck Neck exam: Present: normal inspection, full ROM. Absent: tenderness, lymphadenopathy, thyromegaly - Respiratory Respiratory exam: Present: normal lung sounds bilaterally. Absent: respiratory distress, wheezes, stridor, chest wall tenderness - Cardiovascular Cardiovascular Exam: Present: regular rate, normal rhythm, normal heart sounds. Absent: systolic murmur, diastolic murmur, rubs, gallop - GI/Abdominal GI/Abdominal exam: Present: soft, normal bowel sounds. Absent: distended, tenderness - Rectal Rectal exam: Present: deferred - Extremities Exam Extremities exam: Present: normal inspection, full ROM, normal capillary refill - Back Exam Back exam: Present: normal inspection. Absent: CVA tenderness (R), CVA tenderness (L) - Neurological Exam Neurological exam: Present: alert, oriented X3, CN II-XII intact, normal gait - Expanded Neurological Exam Expanded Patient oriented to: Present: person, place, time Speech: Present: fluid speech Cranial nerves: EOM's Intact: Normal, Gag Reflex: Normal Motor strength exam: RUE: 5, LUE: 5, RLE: 5, LLE: 5 Best Eye Response (Dobbins): (4) open spontaneously Best Motor Response (Dobbins): (6) obeys commands Best Verbal Response (Suraj): (5) oriented Dobbins Total: 15 - Psychiatric Psychiatric exam: Present: normal affect, normal mood - Skin Skin exam: Present: warm, dry, intact, normal color. Absent: rash ED Course Vital Signs 03/25/22 19:03 Temperature 100 F H Pulse Rate 101 H Respiratory 16 Rate Blood Pressure 138/73 [Left] O2 Sat by Pulse 99 Oximetry ED Medical Decision Making - Medical Decision Making Symptoms improved medications given in ED plan treat for sinusitis. DC to home with prescriptions. Follow-up with primary care doctor in 2 to 3 days. Return to emergency department should symptoms worsen. Patient verbalized agreement and understanding of discharge plan. Patient will be DC'd home in stable condition at this time. Critical care attestation.: If time is entered above; I have spent that time in minutes in the direct care of this critically ill patient, excluding procedure time. ED Disposition Clinical Impression: Sinusitis Qualifiers: Sinusitis location: maxillary Chronicity: acute Recurrence: not specified as recurrent Qualified Code(s): J01.00 - Acute maxillary sinusitis, unspecified Disposition: HOME / SELF CARE / HOMELESS Is pt being admited?: No Does the pt Need Aspirin: No Condition: Stable Instructions: Sinusitis, Adult, [id number] Additional Instructions: Take all medications as prescribed, follow-up with your primary care doctor in 2 to 3 days. Return to emergency department should symptoms worsen. Prescriptions: Fexofenadine HCl [Lucía Allergy] 180 mg PO DAILY #30 tab Clindamycin [Clindamycin CAP] 300 mg PO Q8H 7 Days #21 cap Fluticasone [Flonase] 1 spray NS QDAY #1 bottle methylPREDNISolone [Medrol 4MG DOSEPAK (21 tabs)] 4 mg PO DAILY #1 pack Ibuprofen [Motrin 800 MG tab] 800 mg PO Q8HR PRN #30 tablet PRN Reason: Pain Referrals: CHI DUNAWAY MD [Referring] - 3-5 Days Forms: Work/School Release Form(ED) Time of Disposition: 00:21
[2022-03-26 00:38] VITALS: BP 142/76
== END 2022-03-26 00:38 | disposition home or self-care (01) ==
LOC: ED 18:22
DX: J01.90 Acute sinusitis, unspecified (principal); F17.200 Nicotine dependence, unspecified, uncomplicated; I10 Essential (primary) hypertension; Z88.0 Allergy status to penicillin; Z88.1 Allergy status to other antibiotic agents; Z88.8 Allergy status to other drugs, medicaments and biological substances
CPT/HCPCS: 99282